=== PATIENT | male | born 1995 | race Asian ===

== ENCOUNTER 2018-10-15 12:22 | Emergency (ER) | payer OTHER ==
[~2018-10-15] VITALS: Ht 182.9 cm; Wt 70.5 kg
--- NOTE | 2018-10-15 13:18 | REP ---
Right knee five views : There is no fracture or dislocation. Mineralization and joint spaces are normal. There are no calcifications or foreign bodies. Impression: Negative right knee . Electronically Signed by Hong Galindo MD 10/15/2018 01:09 P
[2018-10-15] MEDS ORDERED: IBUP-1022 PO (14:04)
[2018-10-15 14:11] VITALS: BP 121/84
== END 2018-10-15 14:23 | disposition home or self-care (01) ==
LOC: M ED 12:22
DX: S86.911A Strain of unspecified muscle(s) and tendon(s) at lower leg level, right leg, initial encounter (principal); X58.XXXA Exposure to other specified factors, initial encounter; Y92.9 Unspecified place or not applicable; Y93.9 Activity, unspecified; Y99.9 Unspecified external cause status; Z88.0 Allergy status to penicillin

== ENCOUNTER → 2019-02-03 | Outpatient (CLI) | payer OTHER ==
[~2019-02-03] MED LIST: IBUP-1022 PO
--- NOTE | 2019-02-03 18:05 | REP ---
Three-phase bone scan of the knees: History: Right lower extremity lesion medial tibia. Comparison radiographs January 26, 2019. Comparison MRI study images November 18, 2018. Technique: 21.0 mCi technetium 99m MDP is injected and three-phase bone imaging is acquired. Scintigraphic findings: Anterior posterior flow study is normal. Blood pool images show normal symmetric soft tissue uptake. Delayed scan images demonstrate normal symmetric uptake. There is no abnormal uptake at the site of the subcortical posteromedial tibial plateau lesions seen on radiographs and MR images in the right knee. Impression: Negative three-phase bone scanning of the knees. Electronically Signed by Josesito Qureshi MD 02/03/2019 07:07 P
== END ==
LOC: M RAD 10:33
DX: M85.60 Other cyst of bone, unspecified site (principal)